=== PATIENT | male | born 1985 | race Caucasian/White ===

== ENCOUNTER 2019-09-18 12:25 | Emergency (ER) | payer OTHER ==
[~2019-09-18] VITALS: Ht 170.1 cm; Wt 106.1 kg
[~2019-09-18 12:25] MED LIST: AMOXICILLIN500 MG PO; AMOXIL500 MG PO; AUGMENTIN 875 M1 TAB PO; BIAXIN500 MG PO; CIPRODEX 0.3%-7.5 ML OT; CIPROFLOXACIN500 MG PO; CORDROL20 MG PO; DARVOCET N 1001 TAB PO; FLOMAX0.4 MG PO; FLONASE0.05 MG/AC NS; HYDROCODONE BIT1 T11 PO; IBUPROFEN 30 M800 MG PO; MOTRIN800 MG PO; Motrin,Rufen800 MG PO; NKHM; PEN-VEE K500 MG PO; PEPCID20 MG PO; PERCOCET 325 MG1 TA2 PO; PERCOCET 325 MG1 TA7 PO; PHENERGAN W/DM120 ML PO; PREDNICOT10 MG PO; PREDNISONE10 MG PO; PROAIR HFA0.09 MG/AC INH; ROBITUSSIN DM120 ML PO; SEPTRA DS 800 M1 TAB PO; SUDAFED60 MG PO; TESSALON PERLE100 M1 PO; ULTRAM50 MG PO; VICODIN 5/500 505 MG PO; ZITHROMAX Z PA250 MG PO; ZOFRAN ODT4 MG SL; ZYRTEC10 M1 PO
[2019-09-18] MEDS ORDERED: FLONASE ALLERG9.9 ML NAS (13:32)
[2019-09-18] MEDS ORDERED: AMOXICILLIN500 M2 PO (13:32)
== END 2019-09-18 13:35 | disposition home or self-care (01) ==
LOC: ED 12:25
DX: J01.90 Acute sinusitis, unspecified (principal); H93.8X3 Other specified disorders of ear, bilateral; Z88.6 Allergy status to analgesic agent; Z88.8 Allergy status to other drugs, medicaments and biological substances; Z79.899 Other long term (current) drug therapy